=== PATIENT | female | born 1940 | race Caucasian/White ===

== ENCOUNTER 2024-09-14 15:34 | Inpatient (IN) | payer MEDICARE, OTHER ==
[~2024-09-14 15:34] MED LIST: Iopamidol 370 76% 100 ML VIAL ONE
[2024-09-14 16:36] LABS: #Basophils 0.03 10x3/uL (0.0-0.2); #Eosinophils 0.05 10x3/uL (0.0-0.5); #Monocytes 0.86 10x3/uL (0.0-1.1); #Neutrophils 9.69 10x3/uL (1.5-8.4); %Basophils 0.2 % (0.0-2.0); %Eosinophils 0.4 % (0.0-6.0); %Monocytes 6.7 % (0.0-10.0); %Neutrophils 75.4 % (40.0-75.0); Hematocrit 37.6 % (34.9-44.5); Hemoglobin 12.2 g/dL (12.0-15.5); Mean Corpuscular HGB CONC 32.4 g/dL (32.0-36.0); Mean Corpuscular Hemoglobin 28.9 pg (27.0-33.0); Mean Corpuscular Volume 89.1 fL (81.6-98.3); Mean Platelet Volume 10.1 fL (7.4-10.4); Platelet Count 317 10x3/uL (150-450); RBC Distribution Width 13.1 % (11.5-14.5); Red Blood Cell (RBC) Count 4.22 10x6/uL (3.90-5.03); White Blood Cell (WBC) Count 12.9 10x3/uL (3.5-10.5)
[2024-09-14 16:41] LABS: Prothrombin Time 10.6 sec (9.5-12.1)
[2024-09-14 16:53] LABS: Troponin I Less than 0.010 ng/mL (< 0.028)
[2024-09-14 16:54] LABS: ALT (SGPT) 24 U/L (8-55); AST (SGOT) 17 U/L (5-34); Albumin 3.7 g/dL (3.4-4.8); Alkaline Phosphatase 142 U/L (40-110); Anion Gap 11 mmol/L (10-20); BUN (Urea Nitrogen) 26 mg/dL (9.8-20.1); Bilirubin, Total 0.5 mg/dL (0.2-1.2); Calc. Creatinine Clearance 0 mL/min (70-130); Calcium 9.1 mg/dL (7.8-10.44); Carbon Dioxide 25 mmol/L (23-31); Chloride 103 mmol/L (98-107); Estimated GFR 72; Globulin 3.2 g/dL (2.4-3.5); Glucose 136 mg/dL (83-110); Magnesium 2.2 mg/dL (1.6-2.6); Protein, Total 6.9 g/dL (5.8-8.1); Sodium 135 mmol/L (136-145)
[2024-09-14 17:27] LABS: Bilirubin Neg (Negative); Blood, Urine 10 (Negative); Clarity Cloudy (Clear); Glucose, Urine (Dipstick) Normal (Negative); Ketone, Urine Negative (Negative); Leukocyte 500 (Negative); Nitrite Negative (Negative); Protein, Urine (Dipstick) 30 mg/dl (Neg-Trace); Urobilinogen Normal mg/dL (Less than 2)
[2024-09-14 17:52] LABS: Bacteria/HPF 4+ HPF (None Seen); CAUTI Indications for Culture Alt mental st,lethar; RBC/HPF 0-3 HPF (0-3); Transitional Epithelial 0-3 HPF (None Seen); WBC/HPF Greater than 50 HPF (0-3)
[2024-09-14 17:53] LABS: Urine Culture Reflex Yes Yes
[2024-09-14] MEDS ORDERED: cefTRIAXone (ROCEPHIN) 1 GM VIAL ONE (18:49)
[2024-09-14] MEDS ORDERED: Acetaminophen 325 MG TAB PO PRN (19:15)
[2024-09-14] MEDS ORDERED: traMADol HCl 50 MG TAB PO PRN (19:15)
[2024-09-14] MEDS ORDERED: Ondansetron PF 4 MG/2 ML Vial IVP PRN (19:15)
[2024-09-14] MEDS ORDERED: Ondansetron ODT 4 MG TAB PO PRN (19:15)
[2024-09-14] MEDS ORDERED: Ipratropium/Albuterol 3 ML NEB NEB PRN (20:09)
[2024-09-14] MEDS ORDERED: Doxycycline 100 MG VIAL ONE (21:44)
[2024-09-14] MEDS ORDERED: Atorvastatin Calcium 40 MG TAB ONE (21:45)
[2024-09-14] MEDS ORDERED: Aspirin Chewable 81 MG TAB ONE (21:45)
[2024-09-14] MEDS: Aspirin 81 mg Enteric Coated Tablet PO SCH (22:00)
[2024-09-14] MEDS: Doxycycline 100 MG in Sodium Chloride 0.9% 100 ML IVPB SCH (22:00)
[2024-09-14] MEDS: Atorvastatin Calcium 40 MG TAB PO SCH (22:00)
[2024-09-14] MEDS: Sodium Chloride 0.9% 1,000 ML IV SCH (23:00)
[2024-09-15 04:32] LABS: #Basophils 0.05 10x3/uL (0.0-0.2); #Eosinophils 0.22 10x3/uL (0.0-0.5); #Neutrophils 5.34 10x3/uL (1.5-8.4); %Basophils 0.5 % (0.0-2.0); %Eosinophils 2.4 % (0.0-6.0); %Lymphocytes 28.1 % (18.0-47.0); %Monocytes 9.9 % (0.0-10.0); %Neutrophils 58.8 % (40.0-75.0); Hematocrit 34.4 % (34.9-44.5); Hemoglobin 11.2 g/dL (12.0-15.5); Mean Corpuscular HGB CONC 32.6 g/dL (32.0-36.0); Mean Corpuscular Hemoglobin 29.3 pg (27.0-33.0); Mean Corpuscular Volume 90.1 fL (81.6-98.3); Mean Platelet Volume 10.4 fL (7.4-10.4); Platelet Count 275 10x3/uL (150-450); RBC Distribution Width 13.2 % (11.5-14.5); Red Blood Cell (RBC) Count 3.82 10x6/uL (3.90-5.03); White Blood Cell (WBC) Count 9.1 10x3/uL (3.5-10.5)
[2024-09-15 04:34] LABS: ALT (SGPT) 21 U/L (8-55); AST (SGOT) 15 U/L (5-34); Albumin 3.2 g/dL (3.4-4.8); Alkaline Phosphatase 139 U/L (40-110); Anion Gap 13 mmol/L (10-20); BUN (Urea Nitrogen) 18 mg/dL (9.8-20.1); Bilirubin, Total 0.3 mg/dL (0.2-1.2); Calc. Creatinine Clearance 0 mL/min (70-130); Calcium 9.3 mg/dL (7.8-10.44); Carbon Dioxide 22 mmol/L (23-31); Cardiac Risk 2.6 (Less than 4.5); Chloride 106 mmol/L (98-107); Cholesterol 179 mg/dl (< 200 Desired); Estimated GFR 86; Globulin 2.9 g/dL (2.4-3.5); Glucose 96 mg/dL (83-110); HDL Cholesterol 69 mg/dL (>60 Neg Risk); LDL Cholesterol, Calculated 100 mg/dL; Potassium 3.6 mmol/L (3.5-5.1); Protein, Total 6.1 g/dL (5.8-8.1); Sodium 137 mmol/L (136-145); Triglycerides 51 mg/dL (Less than 150)
[2024-09-15] MEDS ORDERED: Enoxaparin 40 MG (0.4 mL) SYRINGE ONE (09:01)
[2024-09-15] MEDS ORDERED: Pantoprazole 40 MG VIAL ONE (09:02)
[2024-09-15] MEDS ORDERED: Aspirin 81 mg Enteric Coated Tablet ONE (09:02)
[2024-09-15] MEDS ORDERED: Doxycycline 100 MG VIAL ONE (09:02)
[2024-09-15] MEDS: Aspirin 81 mg Enteric Coated Tablet PO SCH (09:42)
[2024-09-15] MEDS: Enoxaparin 40 MG (0.4 mL) SYRINGE SC SCH (09:47)
[2024-09-15] MEDS: cefTRIAXone\\ROCEPHIN 1 GM in Sodium Chloride 0.9% 100 ML IVPB SCH (17:23)
[2024-09-15] MEDS: Pantoprazole 40 MG VIAL IVP SCH (20:01)
[2024-09-16] MEDS: Carvedilol 6.25 MG TAB PO SCH (21:03)
[2024-09-17 08:47] VITALS: TEMP 98.2
[2024-09-17] MEDS: Amlodipine 10 MG TAB PO SCH (09:22)
[2024-09-17] MEDS: Valsartan 80 MG TAB PO SCH (09:29)
[2024-09-17 12:10] VITALS: BP 147/67
== END 2024-09-17 14:05 | DRG 689 ==
LOC: CSHERS 15:34 → CSHERHOLD 19:18 → OBSVTOIN 09-15 10:03 → CSHTELE 09-15 14:01
PROVIDERS: ADMIT Internal Medicine; ATTEND Internal Medicine
DX: N39.0 Urinary tract infection, site not specified (principal); G93.41 Metabolic encephalopathy; J96.01 Acute respiratory failure with hypoxia; F32.A Depression, unspecified; Z66 Do not resuscitate; I10 Essential (primary) hypertension; D72.829 Elevated white blood cell count, unspecified; F17.210 Nicotine dependence, cigarettes, uncomplicated; I48.0 Paroxysmal atrial fibrillation; E78.5 Hyperlipidemia, unspecified; B96.1 Klebsiella pneumoniae [K. pneumoniae] as the cause of diseases classified elsewhere; Z90.49 Acquired absence of other specified parts of digestive tract; Z98.51 Tubal ligation status; Z79.82 Long term (current) use of aspirin; Z79.02 Long term (current) use of antithrombotics/antiplatelets; Z79.899 Other long term (current) drug therapy
CPT/HCPCS: 36415; 36416; 70496; 70498; 70551; 71045; 71275; 80053; 80061; 81001; 83605; 83735; 83880; 84145; 84146; 84443; 84484; 85025; 85379; 85610; 85730; 87040; 87077; 87086; 87186; 87428; 93005; 93880; 94760; 96372; 96374; 96375; 96376; G0378; J0696; J1650; J2470; J7030; Q9967